=== PATIENT | male | born 1990 | race Caucasian/White ===

== ENCOUNTER 2021-05-09 15:49 | Inpatient (IN) ==
[2021-05-09] MEDS ORDERED: SODIUM CHLORIDE 0.9% 2,000 ML IV STA (23:50)
[2021-05-09] MEDS ORDERED: VANCOMYCIN INJ 1,000 MG in SODIUM CHLORIDE 0.9% 250 ML IV STA (23:51)
[2021-05-09] MEDS ORDERED: PIPERACILLIN/TAZOBACTAM 3,375 MG in SODIUM CHLORIDE 0.9% 100 ML IV STA (23:51)
[2021-05-09] MEDS ORDERED: HYDROmorphone 2 MG/1 ML VIAL IV STA (23:56)
[2021-05-10] MEDS ORDERED: CLINDAMYCIN INJ 900 MG/50 ML PREMIX IV STA (00:15)
[2021-05-10] MEDS ORDERED: ACETAMINOPHEN 500 MG TABLET ONE (01:58)
[2021-05-10 02:00] LABS: Basophils % 0.2 % (0.0-0.8); Hematocrit 43.8 VOL% (42.0-52.0); Hemoglobin 14.7 GM/DL (14.0-18.0); Immature Granulocytes % 1.8 %; Immature Granulocytes Absolute 0.38 #; Lymphocytes # 1.7 10*3/uL (1.4-4.0); Lymphocytes % 7.9 % (21.2-54.2); Mean Corpuscular HGB Conc 33.6 GM/DL (32-36); Mean Corpuscular Volume 82.5 FL (87-102); Mean Platelet Volume 9.9 FL (9.6-12.0); Monocytes % 8.8 % (1.7-12.7); Neutrophils % 81.3 % (38.7-73.9); Platelet Count 232 T/CUMM (130-400); Red Blood Count 5.31 MC/CUMM (3.8-5.5); Red Cell Distribution Width 12.1 % (9.3-17.3); White Blood Count 21.5 T/CUMM (4-12)
[2021-05-10 02:11] LABS: INR 1.1; PT Patient Result 12.2 SECS (10.5-12.0); Partial Thromboplastin Time 26.8 SECS (23.8-32.1)
[2021-05-10 02:35] LABS: Calcium 9.8 MG/DL (8.5-10.1); Osmolality,Calculated 270.8 MOS/KG (273-304); Potassium 3.5 MMOL/L (3.5-5.1)
[2021-05-10] MEDS ORDERED: ACETAMINOPHEN 500 MG TABLET PO STA (03:30)
[2021-05-10 03:38] LABS: Lymphocytes 9 % (20-55); Microcytosis 1+; Platelet Estimate Normal; Polychromasia Slight; Segmented Neutrophils 81 % (50-85); Total Cells Counted 100
[2021-05-10] MEDS ORDERED: ROPIVACAINE 0.5% 30 ML VIAL ONE (04:42)
[2021-05-10] MEDS ORDERED: BACITRACIN OINT 0.9 GM PACK TOP ONE (04:42)
[2021-05-10] MEDS ORDERED: propofoL 200 MG/20 ML VIAL IV ONE ×2 (04:44→05:37)
[2021-05-10] MEDS ORDERED: LIDOCAINE 2% 5 ML VIAL ONE (04:44)
[2021-05-10] MEDS ORDERED: MIDAZOLAM 2 MG/2 ML VIAL ONE (04:45)
[2021-05-10] MEDS ORDERED: fentaNYL 100 MCG/2 ML VIAL ONE (04:45)
[2021-05-10] MEDS ORDERED: ceFAZolin 2,000 MG in SODIUM CHLORIDE 0.9% 100 ML IV ONE (04:46)
[2021-05-10] MEDS ORDERED: SUCCINYLCHOLINE 200 MG/10 ML VIAL ONE (04:49)
[2021-05-10] MEDS ORDERED: SODIUM CHLORIDE 0.9% 1,000 ML IV ONE ×2 (05:00→05:36)
[2021-05-10] MEDS ORDERED: ceFAZolin 1,000 MG VIAL ONE (05:15)
[2021-05-10 05:21] LABS: Bilirubin,Urine Negative (Negative); Blood, Urine Negative (Negative); Glucose,Urine (UA) >=500 mg/dL (Negative); Ketones,Urine 80 mg/dL (Negative); Mucus,Urine Occasional /LPF (Occasional); Nitrite,Urine Negative (Negative); Protein,Urine 100 MG/DL; RBC,Urine 4 /HPF (0-4); Urine Appearance CLEAR (Clear); Urine Color Yellow (Yellow); Urine Specific Gravity 1.036 (1.001-1.035); Urine Urobilinogen < 2.0 EU/DL (<2.0)
[2021-05-10] MEDS ORDERED: hydrALAZINE 20 MG/1 ML VIAL IV PRN (05:31)
[2021-05-10] MEDS ORDERED: POTASSIUM CHLORIDE RIDER 10 MEQ/100 ML PREMIX IV PRN (05:31)
[2021-05-10] MEDS ORDERED: GLUCAGON 1 MG VIAL IM PRN ×2 (05:31→08:34)
[2021-05-10] MEDS ORDERED: MAGNESIUM SULF RIDER 4 GM/100 ML PREMIX IV PRN (05:31)
[2021-05-10] MEDS ORDERED: ONDANSETRON 4 MG/2 ML VIAL IV PRN ×2 (05:31→06:45)
[2021-05-10] MEDS ORDERED: ONDANSETRON 4 MG/2 ML VIAL ONE (05:34)
[2021-05-10] MEDS ORDERED: DEXTROSE 10% 250 ML BAG IV PRN (05:46)
[2021-05-10] MEDS ORDERED: SEVOFLURANE 1 UNIT/15 MINUTE INH ONE (06:08)
[2021-05-10 06:31] LABS: Bilirubin,Urine Negative (Negative); Blood, Urine Negative (Negative); Glucose,Urine (UA) >=500 mg/dL (Negative); Ketones,Urine 80 mg/dL (Negative); Nitrite,Urine Negative (Negative); Protein,Urine 100 MG/DL; RBC,Urine 1 /HPF (0-4); Squamous Epithelial Cell,Urine Occasional /HPF (0-10); Urine Appearance CLEAR (Clear); Urine Color Yellow (Yellow); Urine Specific Gravity > 1.060 (1.001-1.035)
[2021-05-10] MEDS: HYDROmorphone 2 MG/1 ML VIAL IV PRN ×4 (06:50→14:04)
[2021-05-10 07:05] LABS: Ferritin 428.8 ng/mL (26-388)
[2021-05-10] MEDS ORDERED: METOPROLOL TARTRATE 5 MG/5 ML VIAL IV STA (07:17)
[2021-05-10 07:40] LABS: INR 1.1; PT Patient Result 12.4 SECS (10.5-12.0)
[2021-05-10 07:43] LABS: Risk Ratio 6.9; Thyroid Stimulating Hormone 0.984 uIU/ml (0.358-3.74); VLDL Cholesterol 26.4 MG/DL
[2021-05-10] MEDS ORDERED: DEXTROSE 50% 25 GM/50 ML VIAL IV PRN (08:34)
[2021-05-10] MEDS ORDERED: ASCORBIC ACID 500 MG TABLET PO SCH (09:00)
[2021-05-10] MEDS ORDERED: CHOLECALCIFEROL 1,000 UNIT TABLET PO SCH (09:00)
[2021-05-10] MEDS ORDERED: ZINC GLUCONATE 50 MG TABLET PO SCH (09:00)
[2021-05-10] MEDS: PIPERACILLIN/TAZOBACTAM 3,375 MG in SODIUM CHLORIDE 0.9% 100 ML IV SCH ×2 (10:47→23:44)
[2021-05-10] MEDS: PANTOPRAZOLE 40 MG TABLET PO SCH (10:47)
[2021-05-10] MEDS: DOCUSATE SODIUM 100 MG CAPSULE PO SCH ×2 (10:47→20:41)
[2021-05-10] MEDS: INSULIN REGULAR 100 UNIT/ML SUBCUT SCH ×4 (11:30→21:25)
[2021-05-10] MEDS ORDERED: ALUM/MAG/SIMETH/LIDO VISC 1:1 30 ML BOTTLE PO PRN (11:54)
[2021-05-10] MEDS: CLINDAMYCIN INJ 600 MG/50 ML PREMIX IV SCH ×2 (12:15→20:43)
[2021-05-10] MEDS: ALBUTEROL 2.5 MG/3 ML NEB RESP TX SCH ×3 (12:59→19:34)
[2021-05-10] MEDS: VANCOMYCIN INJ 2,000 MG in SODIUM CHLORIDE 0.9% 500 ML IV SCH (17:02)
[2021-05-10] MEDS: INSULIN GLARGINE 100 UNIT/ML SUBCUT SCH (20:41)
[2021-05-10] MEDS: SODIUM CHLORIDE 0.9% 1,000 ML IV SCH ×3 (21:50→23:11)
[2021-05-11] MEDS: ALBUTEROL 2.5 MG/3 ML NEB RESP TX SCH ×4 (00:43→20:30)
[2021-05-11] MEDS: MAGNESIUM SULF RIDER 2 GM/50 ML PREMIX IV PRN (01:09)
[2021-05-11] MEDS: HYDROmorphone 2 MG/1 ML VIAL IV PRN ×5 (04:05→23:14)
[2021-05-11] MEDS: CLINDAMYCIN INJ 600 MG/50 ML PREMIX IV SCH ×3 (04:05→21:32)
[2021-05-11] MEDS: VANCOMYCIN INJ 2,000 MG in SODIUM CHLORIDE 0.9% 500 ML IV SCH ×2 (04:54→17:26)
[2021-05-11 06:11] LABS: Basophils # 0.1 10*3/uL (0.0-0.2); Basophils % 0.5 % (0.0-0.8); Eosinophils % 0.3 % (0.00-10.9); Hematocrit 39.6 VOL% (42.0-52.0); Immature Granulocytes % 1.1 %; Immature Granulocytes Absolute 0.13 #; Lymphocytes # 1.9 10*3/uL (1.4-4.0); Lymphocytes % 16.4 % (21.2-54.2); Mean Corpuscular HGB Conc 32.8 GM/DL (32-36); Mean Corpuscular Volume 85.2 FL (87-102); Monocytes % 9.7 % (1.7-12.7); Platelet Count 205 T/CUMM (130-400); Red Blood Count 4.65 MC/CUMM (3.8-5.5); Red Cell Distribution Width 12.6 % (9.3-17.3); White Blood Count 11.8 T/CUMM (4-12)
[2021-05-11] MEDS: SODIUM CHLORIDE 0.9% 1,000 ML IV SCH ×3 (06:29→21:45)
[2021-05-11 06:33] LABS: Calcium 7.8 MG/DL (8.5-10.1); Osmolality,Calculated 280.7 MOS/KG (273-304); Potassium 3.7 MMOL/L (3.5-5.1)
[2021-05-11] MEDS: PIPERACILLIN/TAZOBACTAM 3,375 MG in SODIUM CHLORIDE 0.9% 100 ML IV SCH ×3 (08:22→23:08)
[2021-05-11] MEDS: INSULIN REGULAR 100 UNIT/ML SUBCUT SCH ×4 (08:22→21:44)
[2021-05-11] MEDS: DOCUSATE SODIUM 100 MG CAPSULE PO SCH ×2 (10:13→21:32)
[2021-05-11] MEDS: PANTOPRAZOLE 40 MG TABLET PO SCH (10:13)
[2021-05-11] MEDS ORDERED: lisinopriL 10 MG TABLET PO SCH (12:00)
[2021-05-11 12:07] LABS: Albumin 2.1 G/DL (3.4-5.0); Bilirubin,Direct 0.2 MG/DL (0.0-0.20); Bilirubin,Indirect 0.4 MG/DL (0.0-1.0); Bilirubin,Total 0.6 MG/DL (0.20-1.00); Total Protein 6.7 G/DL (6.4-8.2)
[2021-05-11] MEDS ORDERED: MIDAZOLAM 2 MG/2 ML VIAL ONE (12:20)
[2021-05-11] MEDS ORDERED: propofoL 200 MG/20 ML VIAL IV ONE ×2 (12:20→12:48)
[2021-05-11] MEDS ORDERED: LIDOCAINE 2% 5 ML VIAL ONE (12:20)
[2021-05-11] MEDS ORDERED: SEVOFLURANE 1 UNIT/15 MINUTE INH ONE ×2 (12:20→13:42)
[2021-05-11] MEDS ORDERED: ONDANSETRON 4 MG/2 ML VIAL ONE (12:20)
[2021-05-11] MEDS ORDERED: fentaNYL 100 MCG/2 ML VIAL ONE ×2 (12:20→13:11)
[2021-05-11] MEDS ORDERED: FAMOTIDINE 20 MG/2 ML VIAL IV ONE (12:36)
[2021-05-11] MEDS ORDERED: SUCCINYLCHOLINE 200 MG/10 ML VIAL ONE (12:48)
[2021-05-11] MEDS ORDERED: ONDANSETRON 4 MG/2 ML VIAL IV PRN (13:55)
[2021-05-11] MEDS ORDERED: HYDROmorphone 2 MG/1 ML VIAL IV PRN (13:55)
[2021-05-11] MEDS ORDERED: MEPERIDINE 25 MG/1 ML VIAL IV PRN (14:23)
[2021-05-11] MEDS ORDERED: GLUCAGON 1 MG VIAL IM PRN (15:24)
[2021-05-11] MEDS ORDERED: DEXTROSE 10% 250 ML BAG IV PRN (15:25)
[2021-05-11] MEDS: ATORVASTATIN 20 MG TABLET PO SCH (21:32)
[2021-05-11] MEDS: INSULIN GLARGINE 100 UNIT/ML SUBCUT SCH (21:33)
[2021-05-12] MEDS: ALBUTEROL 2.5 MG/3 ML NEB RESP TX SCH ×4 (00:35→19:54)
[2021-05-12] MEDS: CLINDAMYCIN INJ 600 MG/50 ML PREMIX IV SCH ×3 (03:09→21:25)
[2021-05-12] MEDS: VANCOMYCIN INJ 2,000 MG in SODIUM CHLORIDE 0.9% 500 ML IV SCH (04:14)
[2021-05-12] MEDS: SODIUM CHLORIDE 0.9% 1,000 ML IV SCH ×2 (06:28→14:31)
[2021-05-12 07:46] LABS: Basophils % 0.5 % (0.0-0.8); Eosinophils # 0.1 10*3/uL (0.0-0.87); Eosinophils % 1.2 % (0.00-10.9); Hematocrit 36.9 VOL% (42.0-52.0); Hemoglobin 11.9 GM/DL (14.0-18.0); Immature Granulocytes % 1.6 %; Immature Granulocytes Absolute 0.13 #; Lymphocytes # 1.5 10*3/uL (1.4-4.0); Lymphocytes % 19.1 % (21.2-54.2); Mean Corpuscular HGB Conc 32.2 GM/DL (32-36); Mean Corpuscular Volume 85.2 FL (87-102); Mean Platelet Volume 9.7 FL (9.6-12.0); Monocytes % 9.9 % (1.7-12.7); Neutrophils % 67.7 % (38.7-73.9); Platelet Count 205 T/CUMM (130-400); Red Blood Count 4.33 MC/CUMM (3.8-5.5); Red Cell Distribution Width 12.4 % (9.3-17.3); White Blood Count 8.1 T/CUMM (4-12)
[2021-05-12 08:09] LABS: Calcium 7.8 MG/DL (8.5-10.1); Osmolality,Calculated 277.7 MOS/KG (273-304); Potassium 3.3 MMOL/L (3.5-5.1)
[2021-05-12] MEDS: lisinopriL 10 MG TABLET PO SCH (08:39)
[2021-05-12] MEDS: PIPERACILLIN/TAZOBACTAM 3,375 MG in SODIUM CHLORIDE 0.9% 100 ML IV SCH ×3 (08:39→23:45)
[2021-05-12] MEDS: PANTOPRAZOLE 40 MG TABLET PO SCH (08:42)
[2021-05-12] MEDS: DOCUSATE SODIUM 100 MG CAPSULE PO SCH ×2 (08:42→21:24)
[2021-05-12] MEDS: INSULIN REGULAR 100 UNIT/ML SUBCUT SCH ×4 (09:44→21:23)
[2021-05-12] MEDS ORDERED: LIDOCAINE 2% 5 ML VIAL ONE (12:51)
[2021-05-12] MEDS ORDERED: fentaNYL 100 MCG/2 ML VIAL ONE (12:51)
[2021-05-12] MEDS ORDERED: ROCURONIUM 50 MG/5 ML VIAL IV ONE (12:51)
[2021-05-12] MEDS ORDERED: propofoL 200 MG/20 ML VIAL IV ONE ×2 (12:51→12:58)
[2021-05-12] MEDS ORDERED: MIDAZOLAM 2 MG/2 ML VIAL ONE (12:54)
[2021-05-12] MEDS ORDERED: ONDANSETRON 4 MG/2 ML VIAL ONE (12:59)
[2021-05-12] MEDS ORDERED: SUCCINYLCHOLINE 200 MG/10 ML VIAL ONE (12:59)
[2021-05-12] MEDS ORDERED: POTASSIUM CHLORIDE 20 MEQ TABLET PO ONE (13:04)
[2021-05-12] MEDS ORDERED: SEVOFLURANE 1 UNIT/15 MINUTE INH ONE (14:17)
[2021-05-12] MEDS ORDERED: MEPERIDINE 25 MG/1 ML VIAL ONE (14:28)
[2021-05-12] MEDS ORDERED: ONDANSETRON 4 MG/2 ML VIAL IV PRN (14:38)
[2021-05-12] MEDS ORDERED: MEPERIDINE 25 MG/1 ML VIAL IV PRN (14:38)
[2021-05-12] MEDS: HYDROmorphone 2 MG/1 ML VIAL IV PRN ×5 (14:40→19:42)
[2021-05-12] MEDS: INSULIN GLARGINE 100 UNIT/ML SUBCUT SCH (21:23)
[2021-05-12] MEDS: ATORVASTATIN 20 MG TABLET PO SCH (21:24)
[2021-05-13] MEDS: HYDROmorphone 2 MG/1 ML VIAL IV PRN ×4 (04:32→21:59)
[2021-05-13] MEDS: SODIUM CHLORIDE 0.9% 1,000 ML IV SCH (04:32)
[2021-05-13] MEDS: CLINDAMYCIN INJ 600 MG/50 ML PREMIX IV SCH (05:29)
[2021-05-13 05:34] LABS: Basophils # 0.1 10*3/uL (0.0-0.2); Basophils % 0.6 % (0.0-0.8); Eosinophils # 0.1 10*3/uL (0.0-0.87); Eosinophils % 1.3 % (0.00-10.9); Hematocrit 39.5 VOL% (42.0-52.0); Hemoglobin 12.8 GM/DL (14.0-18.0); Immature Granulocytes % 1.9 %; Immature Granulocytes Absolute 0.16 #; Lymphocytes # 1.6 10*3/uL (1.4-4.0); Lymphocytes % 18.6 % (21.2-54.2); Mean Corpuscular HGB Conc 32.4 GM/DL (32-36); Mean Corpuscular Volume 84.8 FL (87-102); Mean Platelet Volume 9.5 FL (9.6-12.0); Neutrophils % 68.6 % (38.7-73.9); Platelet Count 224 T/CUMM (130-400); Red Blood Count 4.66 MC/CUMM (3.8-5.5); Red Cell Distribution Width 12.3 % (9.3-17.3); White Blood Count 8.5 T/CUMM (4-12)
[2021-05-13 06:02] LABS: Calcium 8.1 MG/DL (8.5-10.1); Potassium 3.7 MMOL/L (3.5-5.1)
[2021-05-13] MEDS: INSULIN REGULAR 100 UNIT/ML SUBCUT SCH ×4 (09:13→22:00)
[2021-05-13] MEDS: PANTOPRAZOLE 40 MG TABLET PO SCH (09:14)
[2021-05-13] MEDS: lisinopriL 10 MG TABLET PO SCH (09:14)
[2021-05-13] MEDS: PIPERACILLIN/TAZOBACTAM 3,375 MG in SODIUM CHLORIDE 0.9% 100 ML IV SCH ×3 (09:14→23:48)
[2021-05-13] MEDS: DOCUSATE SODIUM 100 MG CAPSULE PO SCH ×2 (09:14→21:30)
[2021-05-13] MEDS ORDERED: MELATONIN 3 MG TABLET PO PRN (10:12)
[2021-05-13] MEDS: ZINC GLUCONATE 50 MG TABLET PO SCH (11:42)
[2021-05-13] MEDS: ASCORBIC ACID 500 MG TABLET PO SCH ×2 (11:42→21:30)
[2021-05-13] MEDS: CHOLECALCIFEROL 1,000 UNIT TABLET PO SCH (11:42)
[2021-05-13] MEDS: CETIRIZINE 10 MG TABLET PO SCH (11:42)
[2021-05-13] MEDS ORDERED: INSULIN GLARGINE 100 UNIT/ML SUBCUT SCH (21:00)
[2021-05-13] MEDS: FAMOTIDINE 20 MG TABLET PO SCH (21:30)
[2021-05-13] MEDS: INSULIN GLARGINE 100 UNIT/ML SUBCUT SCH (22:00)
[2021-05-13] MEDS: ATORVASTATIN 20 MG TABLET PO SCH (22:00)
[2021-05-14] MEDS: HYDROmorphone 2 MG/1 ML VIAL IV PRN ×3 (06:21→19:31)
[2021-05-14 06:32] LABS: Basophils % 0.6 % (0.0-0.8); Eosinophils # 0.1 10*3/uL (0.0-0.87); Hematocrit 40.4 VOL% (42.0-52.0); Hemoglobin 12.9 GM/DL (14.0-18.0); Immature Granulocytes % 3.7 %; Immature Granulocytes Absolute 0.26 #; Lymphocytes % 28.8 % (21.2-54.2); Mean Corpuscular HGB Conc 31.9 GM/DL (32-36); Mean Corpuscular Volume 85.1 FL (87-102); Mean Platelet Volume 9.6 FL (9.6-12.0); Monocytes % 8.5 % (1.7-12.7); Neutrophils % 56.4 % (38.7-73.9); Platelet Count 239 T/CUMM (130-400); Red Blood Count 4.75 MC/CUMM (3.8-5.5); Red Cell Distribution Width 11.9 % (9.3-17.3); White Blood Count 6.9 T/CUMM (4-12)
[2021-05-14 06:57] LABS: Calcium 8.4 MG/DL (8.5-10.1); Osmolality,Calculated 279.5 MOS/KG (273-304); Potassium 3.7 MMOL/L (3.5-5.1)
[2021-05-14 07:11] LABS: Ferritin 237.2 ng/mL (26-388)
[2021-05-14] MEDS: ALBUTEROL INHALER 18 GM INH SCH ×3 (11:28→21:19)
[2021-05-14] MEDS: INSULIN REGULAR 100 UNIT/ML SUBCUT SCH ×4 (11:28→21:20)
[2021-05-14] MEDS ORDERED: SUCCINYLCHOLINE 200 MG/10 ML VIAL ONE (11:29)
[2021-05-14] MEDS ORDERED: ONDANSETRON 4 MG/2 ML VIAL ONE (11:29)
[2021-05-14] MEDS ORDERED: MIDAZOLAM 2 MG/2 ML VIAL ONE (11:29)
[2021-05-14] MEDS ORDERED: fentaNYL 100 MCG/2 ML VIAL ONE (11:29)
[2021-05-14] MEDS ORDERED: propofoL 200 MG/20 ML VIAL IV ONE (11:29)
[2021-05-14] MEDS ORDERED: ROCURONIUM 50 MG/5 ML VIAL IV ONE (11:29)
[2021-05-14] MEDS ORDERED: cefTRIAXone 1,000 MG VIAL ONE (12:01)
[2021-05-14] MEDS ORDERED: LIDOCAINE 1% 50 ML VIAL ONE (12:01)
[2021-05-14] MEDS ORDERED: HYDROmorphone 2 MG/1 ML VIAL IV PRN (13:01)
[2021-05-14] MEDS ORDERED: ONDANSETRON 4 MG/2 ML VIAL IV PRN (13:01)
[2021-05-14] MEDS: CETIRIZINE 10 MG TABLET PO SCH (14:18)
[2021-05-14] MEDS: FAMOTIDINE 20 MG TABLET PO SCH ×2 (14:18→21:19)
[2021-05-14] MEDS: ASCORBIC ACID 500 MG TABLET PO SCH ×2 (14:18→21:19)
[2021-05-14] MEDS: lisinopriL 10 MG TABLET PO SCH (14:18)
[2021-05-14] MEDS: ZINC GLUCONATE 50 MG TABLET PO SCH (14:18)
[2021-05-14] MEDS: CHOLECALCIFEROL 1,000 UNIT TABLET PO SCH (14:18)
[2021-05-14] MEDS: DOCUSATE SODIUM 100 MG CAPSULE PO SCH ×3 (14:18→21:30)
[2021-05-14] MEDS: PIPERACILLIN/TAZOBACTAM 3,375 MG in SODIUM CHLORIDE 0.9% 100 ML IV SCH ×2 (14:19→19:27)
[2021-05-14] MEDS: ATORVASTATIN 20 MG TABLET PO SCH (21:19)
[2021-05-14] MEDS: INSULIN GLARGINE 100 UNIT/ML SUBCUT SCH (21:20)
[2021-05-15] MEDS: ALBUTEROL INHALER 18 GM INH SCH ×3 (01:42→13:14)
[2021-05-15] MEDS: PIPERACILLIN/TAZOBACTAM 3,375 MG in SODIUM CHLORIDE 0.9% 100 ML IV SCH ×3 (01:42→18:02)
[2021-05-15] MEDS: HYDROmorphone 2 MG/1 ML VIAL IV PRN ×4 (03:58→21:30)
[2021-05-15 05:52] LABS: Basophils # 0.1 10*3/uL (0.0-0.2); Basophils % 0.6 % (0.0-0.8); Eosinophils # 0.2 10*3/uL (0.0-0.87); Eosinophils % 1.9 % (0.00-10.9); Hematocrit 41.5 VOL% (42.0-52.0); Hemoglobin 13.5 GM/DL (14.0-18.0); Immature Granulocytes % 2.3 %; Immature Granulocytes Absolute 0.23 #; Lymphocytes # 2.2 10*3/uL (1.4-4.0); Lymphocytes % 22.2 % (21.2-54.2); Mean Corpuscular HGB Conc 32.5 GM/DL (32-36); Mean Corpuscular Volume 85.7 FL (87-102); Mean Platelet Volume 9.6 FL (9.6-12.0); Monocytes % 8.2 % (1.7-12.7); Neutrophils % 64.8 % (38.7-73.9); Platelet Count 286 T/CUMM (130-400); Red Blood Count 4.84 MC/CUMM (3.8-5.5); Red Cell Distribution Width 11.9 % (9.3-17.3); White Blood Count 9.9 T/CUMM (4-12)
[2021-05-15 06:09] LABS: Calcium 8.4 MG/DL (8.5-10.1); Osmolality,Calculated 280.4 MOS/KG (273-304)
[2021-05-15] MEDS: MAGNESIUM SULF RIDER 2 GM/50 ML PREMIX IV PRN (06:38)
[2021-05-15] MEDS: CHOLECALCIFEROL 1,000 UNIT TABLET PO SCH (09:56)
[2021-05-15] MEDS: ZINC GLUCONATE 50 MG TABLET PO SCH (09:56)
[2021-05-15] MEDS: CETIRIZINE 10 MG TABLET PO SCH (09:56)
[2021-05-15] MEDS: FAMOTIDINE 20 MG TABLET PO SCH ×2 (09:56→21:30)
[2021-05-15] MEDS: ASCORBIC ACID 500 MG TABLET PO SCH ×2 (09:56→21:30)
[2021-05-15] MEDS: lisinopriL 10 MG TABLET PO SCH (09:57)
[2021-05-15] MEDS: DOCUSATE SODIUM 100 MG CAPSULE PO SCH (09:57)
[2021-05-15] MEDS: INSULIN REGULAR 100 UNIT/ML SUBCUT SCH ×4 (09:57→21:30)
[2021-05-15] MEDS: INSULIN GLARGINE 100 UNIT/ML SUBCUT SCH (21:30)
[2021-05-15] MEDS: ATORVASTATIN 20 MG TABLET PO SCH (21:30)
[2021-05-16] MEDS: HYDROmorphone 2 MG/1 ML VIAL IV PRN ×5 (01:10→19:31)
[2021-05-16] MEDS: PIPERACILLIN/TAZOBACTAM 3,375 MG in SODIUM CHLORIDE 0.9% 100 ML IV SCH ×3 (02:56→17:32)
[2021-05-16] MEDS: ALBUTEROL INHALER 18 GM INH SCH ×5 (03:15→20:10)
[2021-05-16] MEDS: CHOLECALCIFEROL 1,000 UNIT TABLET PO SCH (09:10)
[2021-05-16] MEDS: ASCORBIC ACID 500 MG TABLET PO SCH ×2 (09:10→21:40)
[2021-05-16] MEDS: ZINC GLUCONATE 50 MG TABLET PO SCH (09:10)
[2021-05-16] MEDS: FAMOTIDINE 20 MG TABLET PO SCH ×2 (09:10→21:40)
[2021-05-16] MEDS: lisinopriL 10 MG TABLET PO SCH (09:10)
[2021-05-16] MEDS: INSULIN REGULAR 100 UNIT/ML SUBCUT SCH ×4 (09:11→21:40)
[2021-05-16] MEDS: DOCUSATE SODIUM 100 MG CAPSULE PO SCH ×2 (09:11→21:40)
[2021-05-16] MEDS: CETIRIZINE 10 MG TABLET PO SCH (09:11)
[2021-05-16 09:36] LABS: Basophils # 0.1 10*3/uL (0.0-0.2); Basophils % 0.8 % (0.0-0.8); Eosinophils # 0.3 10*3/uL (0.0-0.87); Eosinophils % 3.3 % (0.00-10.9); Hematocrit 40.2 VOL% (42.0-52.0); Immature Granulocytes % 2.1 %; Immature Granulocytes Absolute 0.16 #; Lymphocytes # 2.8 10*3/uL (1.4-4.0); Mean Corpuscular HGB Conc 32.3 GM/DL (32-36); Mean Corpuscular Volume 85.2 FL (87-102); Mean Platelet Volume 9.1 FL (9.6-12.0); Monocytes % 6.5 % (1.7-12.7); Neutrophils % 50.3 % (38.7-73.9); Platelet Count 256 T/CUMM (130-400); Red Blood Count 4.72 MC/CUMM (3.8-5.5); Red Cell Distribution Width 11.9 % (9.3-17.3); White Blood Count 7.6 T/CUMM (4-12)
[2021-05-16 10:17] LABS: Calcium 8.4 MG/DL (8.5-10.1); Osmolality,Calculated 277.5 MOS/KG (273-304); Potassium 3.8 MMOL/L (3.5-5.1)
[2021-05-16] MEDS: INSULIN GLARGINE 100 UNIT/ML SUBCUT SCH (21:40)
[2021-05-16] MEDS: ATORVASTATIN 20 MG TABLET PO SCH (21:40)
[2021-05-17] MEDS ORDERED: ceFAZolin 2,000 MG in SODIUM CHLORIDE 0.9% 100 ML IV ONE ×2 (00:01→07:40)
[2021-05-17] MEDS: PIPERACILLIN/TAZOBACTAM 3,375 MG in SODIUM CHLORIDE 0.9% 100 ML IV SCH ×3 (03:05→17:56)
[2021-05-17] MEDS: ALBUTEROL INHALER 18 GM INH SCH (03:05)
[2021-05-17 03:07] LABS: Basophils # 0.1 10*3/uL (0.0-0.2); Basophils % 0.7 % (0.0-0.8); Eosinophils # 0.3 10*3/uL (0.0-0.87); Eosinophils % 3.4 % (0.00-10.9); Hematocrit 43.7 VOL% (42.0-52.0); Immature Granulocytes % 1.9 %; Immature Granulocytes Absolute 0.14 #; Lymphocytes # 2.5 10*3/uL (1.4-4.0); Lymphocytes % 33.2 % (21.2-54.2); Mean Corpuscular Volume 85.9 FL (87-102); Mean Platelet Volume 9.2 FL (9.6-12.0); Monocytes % 7.2 % (1.7-12.7); Neutrophils % 53.6 % (38.7-73.9); Platelet Count 284 T/CUMM (130-400); Red Blood Count 5.09 MC/CUMM (3.8-5.5); White Blood Count 7.4 T/CUMM (4-12)
[2021-05-17 03:37] LABS: Calcium 8.9 MG/DL (8.5-10.1); Osmolality,Calculated 278.5 MOS/KG (273-304); Potassium 3.7 MMOL/L (3.5-5.1)
[2021-05-17] MEDS: HYDROmorphone 2 MG/1 ML VIAL IV PRN ×7 (05:10→21:07)
[2021-05-17] MEDS ORDERED: ceFAZolin 2,000 MG/50 ML DUPLEX IV ONE (07:40)
[2021-05-17] MEDS: lisinopriL 20 MG TABLET PO SCH (08:54)
[2021-05-17] MEDS: FAMOTIDINE 20 MG TABLET PO SCH ×2 (08:58→21:13)
[2021-05-17] MEDS: DOCUSATE SODIUM 100 MG CAPSULE PO SCH ×2 (08:58→21:09)
[2021-05-17] MEDS: INSULIN REGULAR 100 UNIT/ML SUBCUT SCH ×4 (08:58→21:09)
[2021-05-17] MEDS: ASCORBIC ACID 500 MG TABLET PO SCH ×2 (08:58→21:09)
[2021-05-17] MEDS: ZINC GLUCONATE 50 MG TABLET PO SCH (08:59)
[2021-05-17] MEDS: CETIRIZINE 10 MG TABLET PO SCH (08:59)
[2021-05-17] MEDS: CHOLECALCIFEROL 1,000 UNIT TABLET PO SCH (08:59)
[2021-05-17] MEDS ORDERED: fentaNYL 100 MCG/2 ML VIAL ONE (12:40)
[2021-05-17] MEDS ORDERED: MIDAZOLAM 2 MG/2 ML VIAL ONE (12:40)
[2021-05-17] MEDS ORDERED: propofoL 200 MG/20 ML VIAL IV ONE ×2 (12:40→13:40)
[2021-05-17] MEDS ORDERED: SUCCINYLCHOLINE 200 MG/10 ML VIAL ONE (12:40)
[2021-05-17] MEDS ORDERED: LIDOCAINE 2% 5 ML VIAL ONE (12:40)
[2021-05-17] MEDS ORDERED: ONDANSETRON 4 MG/2 ML VIAL ONE (13:27)
[2021-05-17] MEDS ORDERED: PHENYLEPHRINE 1 MG/10 ML SYRINGE IV ONE (13:33)
[2021-05-17] MEDS ORDERED: SEVOFLURANE 1 UNIT/15 MINUTE INH ONE (13:40)
[2021-05-17] MEDS: INSULIN GLARGINE 100 UNIT/ML SUBCUT SCH (21:08)
[2021-05-17] MEDS: ATORVASTATIN 20 MG TABLET PO SCH (21:09)
[2021-05-18] MEDS: ALBUTEROL INHALER 18 GM INH SCH ×3 (02:32→21:22)
[2021-05-18] MEDS: PIPERACILLIN/TAZOBACTAM 3,375 MG in SODIUM CHLORIDE 0.9% 100 ML IV SCH ×3 (02:33→19:30)
[2021-05-18] MEDS: HYDROmorphone 2 MG/1 ML VIAL IV PRN ×4 (02:47→21:23)
[2021-05-18 06:25] LABS: Basophils # 0.1 10*3/uL (0.0-0.2); Basophils % 0.7 % (0.0-0.8); Eosinophils # 0.3 10*3/uL (0.0-0.87); Eosinophils % 3.3 % (0.00-10.9); Hematocrit 43.5 VOL% (42.0-52.0); Hemoglobin 13.9 GM/DL (14.0-18.0); Immature Granulocytes % 1.2 %; Immature Granulocytes Absolute 0.11 #; Lymphocytes # 2.6 10*3/uL (1.4-4.0); Lymphocytes % 28.3 % (21.2-54.2); Mean Platelet Volume 9.2 FL (9.6-12.0); Monocytes % 6.4 % (1.7-12.7); Neutrophils % 60.1 % (38.7-73.9); Platelet Count 321 T/CUMM (130-400); Red Blood Count 5.06 MC/CUMM (3.8-5.5); Red Cell Distribution Width 12.2 % (9.3-17.3)
[2021-05-18 06:37] LABS: Calcium 9.2 MG/DL (8.5-10.1); Osmolality,Calculated 270.1 MOS/KG (273-304); Potassium 4.2 MMOL/L (3.5-5.1)
[2021-05-18] MEDS: INSULIN REGULAR 100 UNIT/ML SUBCUT SCH ×4 (09:41→21:28)
[2021-05-18] MEDS: FAMOTIDINE 20 MG TABLET PO SCH ×2 (09:42→21:21)
[2021-05-18] MEDS: DOCUSATE SODIUM 100 MG CAPSULE PO SCH ×2 (09:42→21:21)
[2021-05-18] MEDS: CHOLECALCIFEROL 1,000 UNIT TABLET PO SCH (09:42)
[2021-05-18] MEDS: ASCORBIC ACID 500 MG TABLET PO SCH ×2 (09:43→21:21)
[2021-05-18] MEDS: ZINC GLUCONATE 50 MG TABLET PO SCH (09:43)
[2021-05-18] MEDS: CETIRIZINE 10 MG TABLET PO SCH (09:43)
[2021-05-18] MEDS: lisinopriL 20 MG TABLET PO SCH (09:43)
[2021-05-18] MEDS: ATORVASTATIN 20 MG TABLET PO SCH (21:21)
[2021-05-18] MEDS: INSULIN GLARGINE 100 UNIT/ML SUBCUT SCH (21:22)
[2021-05-19] MEDS: PIPERACILLIN/TAZOBACTAM 3,375 MG in SODIUM CHLORIDE 0.9% 100 ML IV SCH ×2 (02:19→10:08)
[2021-05-19 04:37] LABS: Basophils # 0.1 10*3/uL (0.0-0.2); Basophils % 0.7 % (0.0-0.8); Eosinophils # 0.3 10*3/uL (0.0-0.87); Eosinophils % 3.9 % (0.00-10.9); Hematocrit 45.1 VOL% (42.0-52.0); Hemoglobin 14.5 GM/DL (14.0-18.0); Immature Granulocytes Absolute 0.08 #; Lymphocytes # 2.8 10*3/uL (1.4-4.0); Lymphocytes % 34.9 % (21.2-54.2); Mean Corpuscular HGB Conc 32.2 GM/DL (32-36); Mean Corpuscular Volume 85.9 FL (87-102); Mean Platelet Volume 9.3 FL (9.6-12.0); Monocytes % 7.9 % (1.7-12.7); Neutrophils % 51.6 % (38.7-73.9); Platelet Count 323 T/CUMM (130-400); Red Blood Count 5.25 MC/CUMM (3.8-5.5); Red Cell Distribution Width 12.3 % (9.3-17.3); White Blood Count 8.1 T/CUMM (4-12)
[2021-05-19 04:58] LABS: Calcium 9.2 MG/DL (8.5-10.1)
[2021-05-19] MEDS: HYDROmorphone 2 MG/1 ML VIAL IV PRN ×5 (06:25→22:30)
[2021-05-19] MEDS: ALBUTEROL INHALER 18 GM INH SCH ×5 (06:25→22:14)
[2021-05-19] MEDS: INSULIN REGULAR 100 UNIT/ML SUBCUT SCH ×4 (08:06→22:22)
[2021-05-19] MEDS: lisinopriL 20 MG TABLET PO SCH (10:07)
[2021-05-19] MEDS: CETIRIZINE 10 MG TABLET PO SCH (10:07)
[2021-05-19] MEDS: ASCORBIC ACID 500 MG TABLET PO SCH ×2 (10:07→21:58)
[2021-05-19] MEDS: ZINC GLUCONATE 50 MG TABLET PO SCH (10:07)
[2021-05-19] MEDS: FAMOTIDINE 20 MG TABLET PO SCH ×2 (10:07→21:58)
[2021-05-19] MEDS: DOCUSATE SODIUM 100 MG CAPSULE PO SCH ×2 (10:07→21:58)
[2021-05-19] MEDS: CHOLECALCIFEROL 1,000 UNIT TABLET PO SCH (10:07)
[2021-05-19] MEDS ORDERED: INFLUENZA VIRUS VACCINE 0.5 ML SYRINGE IM ONE (12:01)
[2021-05-19] MEDS: ATORVASTATIN 20 MG TABLET PO SCH (21:58)
[2021-05-19] MEDS: AMOXICILLIN/CLAV 875 MG TABLET PO SCH (21:58)
[2021-05-19] MEDS: INSULIN GLARGINE 100 UNIT/ML SUBCUT SCH (22:14)
[2021-05-20] MEDS: ALBUTEROL INHALER 18 GM INH SCH ×3 (01:05→16:43)
[2021-05-20] MEDS: HYDROmorphone 2 MG/1 ML VIAL IV PRN ×3 (05:40→12:08)
[2021-05-20] MEDS: INSULIN REGULAR 100 UNIT/ML SUBCUT SCH ×3 (08:21→16:44)
[2021-05-20] MEDS: AMOXICILLIN/CLAV 875 MG TABLET PO SCH (09:39)
[2021-05-20] MEDS: FAMOTIDINE 20 MG TABLET PO SCH (09:39)
[2021-05-20] MEDS: ASCORBIC ACID 500 MG TABLET PO SCH (09:39)
[2021-05-20] MEDS: DOCUSATE SODIUM 100 MG CAPSULE PO SCH (09:40)
[2021-05-20] MEDS: CETIRIZINE 10 MG TABLET PO SCH (09:40)
[2021-05-20] MEDS: CHOLECALCIFEROL 1,000 UNIT TABLET PO SCH (09:40)
[2021-05-20] MEDS: ZINC GLUCONATE 50 MG TABLET PO SCH (09:40)
[2021-05-20] MEDS: lisinopriL 20 MG TABLET PO SCH (09:40)
[2021-05-20 12:44] VITALS: BP 130/64
== END 2021-05-20 17:49 | disposition home or self-care (01) | DRG 717 ==
LOC: SUATTDRO → N.ED 15:49 → N.OR 05-10 08:18 → N.3E 05-10 08:20 → SUATTDRO 05-10 08:20 → N.3E 05-11 21:10
PROVIDERS: ADMIT Internal Medicine; ATTEND Internal Medicine